=== PATIENT | female | born 1955 | race Caucasian/White ===

== ENCOUNTER → 2017-02-22 | Outpatient (CLI) | payer OTHER ==
[2015-10-02 21:14] VITALS: BP 157/92
[~2017-02-22] MED LIST: ALBU25PO2 MC; AMLO5TAB4 PO; ATOR10TA PO; CA C1TAB63 PO; CALC500T54 PO; CYAN100016 SL; DIPH25CA58 PO; DOCU100T11 PO; ESTR0.5T PO; HYDR12.53 PO; IRON18TA PO; LOVA40TA2 PO; METH-37 PO; MULT1CAP15 PO; OXYC-323 PO; PROAIR HFA8.5 GM IH; SERT100T PO; TRAM-48 PO; [UNRECOGNIZED DRUG - CODE] TP
--- NOTE | 2017-02-22 17:11 | RAD ---
MRI Brain without contrast History: Pain behind the right eye for 5 weeks Technique: Multiplanar, multisequential noncontrast MR imaging was performed of the brain. Contrast: None Comparison: April 19, 2014 Findings: There is some motion degradation.There is no evidence of recent infarct or cytotoxic edema. The ventricles, sulci, and cisterns are within normal limits in size and configuration. There is no significant midline shift, mass effect, or focal abnormal extra-axial fluid collection. There are multiple scattered foci of T2 and FLAIR hyperintense abnormality of the supratentorial white matter in a bilateral distribution overall unchanged in the interval. There is no significant hemosiderin deposition of the brain parenchyma. There is preservation of the major intracranial flow-voids at the skull base. The mastoid air cells are aerated. The cerebellar tonsils are normal in location. There is no significant abnormality of the pineal gland or pituitary gland. There is patchy minimal ethmoid air cell mucosal thickening. There is preserved marrow signal of the clivus. Impression: 1. There is no intracranial mass effect or evidence of recent infarct. Scattered T2 and FLAIR hyperintense abnormality of the supratentorial white matter is similar in extent compared with the 2015 exam, nonspecific findings which may be due to chronic microvascular ischemic disease. Sequela of an inflammatory demyelinating disease is not entirely excluded in a patient this age. Electronically signed by: Bobby Guajardo MD (02/22/2017 5:08 PM) [facility]
== END | disposition home or self-care (01) ==
LOC: MRI 15:12
PROVIDERS: ATTEND Family Medicine
DX: H57.11 Ocular pain, right eye (principal); G37.9 Demyelinating disease of central nervous system, unspecified
CPT/HCPCS: 70551

== ENCOUNTER → 2017-05-10 | Outpatient (CLI) | payer OTHER | END | disposition home or self-care (01) | LOC: KCIC 11:59 | DX: I87.8 Other specified disorders of veins (principal); Z90.49 Acquired absence of other specified parts of digestive tract | CPT/HCPCS: 74018 ==

== ENCOUNTER → 2018-01-03 | Outpatient (CLI) | payer OTHER ==
[2015-10-02 21:14] VITALS: BP 157/92
--- NOTE | 2018-01-03 16:54 | KCIC ---
FINGER(S) LEFT, WRIST 3V LEFT History: Left thumb and wrist pain for several weeks. Repetitive work. Locking. No injury or trauma.. Comparison: None are available Three-view left thumb Mild marginal spurring at the IP joint. No acute fracture or dislocation. IMPRESSION: Mild degenerative change. 3 view left wrist There is some deformity of the distal radius, likely due to a prior fracture. Mild dorsal tilt of the distal radial articular surface. There is also an incompletely united chronic appearing fracture at the base of the ulnar styloid. Note there is an increased scapholunate angle. Soft tissue planes about the wrist appear intact. IMPRESSION: Findings compatible with previous fractures of the distal radius and distal ulna. These appear nonacute, typically in correlation with the history of known trauma. Electronically signed by: Erick Sanchez MD (01/03/2018 4:51 PM) [facility]
== END | disposition home or self-care (01) ==
LOC: KCIC 12:04
PROVIDERS: ATTEND Family Medicine
DX: M19.042 Primary osteoarthritis, left hand (principal); M21.832 Other specified acquired deformities of left forearm; M77.8 Other enthesopathies, not elsewhere classified
CPT/HCPCS: 73110; 73140

== ENCOUNTER → 2018-06-07 | Outpatient (CLI) | payer OTHER ==
[2015-10-02 21:14] VITALS: BP 157/92
[~2018-06-07] MED LIST changes: +ALBU2.5V8 IH; -HYDR12.53 PO; +HYDR12.575 PO; -OXYC-323 PO; +OXYC1TAB15 PO; -PROAIR HFA8.5 GM IH
--- NOTE | 2018-06-08 10:09 | SLEEP ---
DATE OF STUDY: 06/07/2018 ATTENDING PHYSICIAN: Dr. Sabiha Sheffield. The patient is a 62-year-old who weighs 210 pounds with a BMI of 35. The patient's [place] score was 3. The patient had a sleep study done 10 years ago and was positive for sleep apnea. The patient had bariatric surgery and lost 110 pounds. The patient then subsequently gained 50 pounds and has some daytime somnolence, as a result another sleep study was ordered. During the night study, the patient spent 415 minutes in bed and slept for 401 minutes with a sleep efficiency of 97%. Sleep latency was 12 minutes with a REM latency of 208 minutes. Overall, sleep architecture showed normal stage 1 sleep, increased stage 2 sleep, increased slow wave and reduced REM sleep, which was 6% of the total sleep time. During the night study, the patient had no obstructive or central apneas. There were 3 mixed apneas and 33 hypopneas. The patient's apnea-hypopnea index was 5 per hour, supine index 6 per hour and the REM index of 28 per hour. EKG monitoring revealed normal sinus rhythm, average heart rate 69 beats per minute, no sustained arrhythmias observed. Nocturnal oximetry study revealed an average oxygen saturation 96% with lowest of 85%. Only 2.4% of time oxygen saturation remained between 80% and 89%. PLMS were seen at index of 100 per hour and 8 per hour caused EEG arousals. Due to low AHI, the patient did not meet the split night criteria for CPAP initiation. IMPRESSION: 1. Mild sleep apnea-hypopnea syndrome with worsening during REM sleep. Total AHI of 5 per hour with a REM AHI of 28 per hour. 2. Severe PLMS. 3. No clinically significant nocturnal hypoxia. RECOMMENDATIONS: 1. The patient did not meet the criteria for CPAP initiation. 2. The patient has mild sleep apnea. I would recommend treatment with weight loss initially. 3. If patient remains clinically symptomatic despite weight loss, then consider treatment options such as oral appliance or a trial of CPAP. 4. PLMS can be treated with dopaminergic agonist agents if the patient is clinically symptomatic. The patient should also be further evaluated for symptoms of restless legs during the day. 5. Cautioned regarding driving until hypersomnia is resolved with above recommendations. JAMIN HARGROVE MD DR: YURIY/gary JOB#: [id number] / [id number] SABIHA Beach MD MTDD
== END ==
LOC: SLPLAB 19:13
PROVIDERS: ATTEND Family Medicine
DX: G47.33 Obstructive sleep apnea (adult) (pediatric) (principal); G47.61 Periodic limb movement disorder
CPT/HCPCS: 95810

== ENCOUNTER → 2018-08-18 | Outpatient (CLI) | payer OTHER ==
[2015-10-02 21:14] VITALS: BP 157/92
--- NOTE | 2018-08-18 16:56 | KCIC ---
Lumbar spine 5 views. HISTORY: Low back pain, M [age] 5 views were taken of lumbar spine. There is increased stool in the colon. Patient's had a cholecystectomy. A fracture is not identified. Lumbar spine is in normal alignment. Disc spaces are normal in height. Oblique view show facet arthritis in the lower lumbar spine. IMPRESSION: 1. Degenerative facet arthritis. 2. No acute fracture. Electronically signed by: Prieto Lindsey MD (08/18/2018 4:53 PM) [facility]
== END | disposition home or self-care (01) ==
LOC: KCIC 15:57
PROVIDERS: ATTEND Family Medicine
DX: M46.86 Other specified inflammatory spondylopathies, lumbar region (principal); Z90.49 Acquired absence of other specified parts of digestive tract
CPT/HCPCS: 72110

== ENCOUNTER 2019-06-14 12:46 | Emergency (ER) | payer OTHER ==
[~2019-06-14] VITALS: Ht 167.6 cm; Wt 99.0 kg
[2019-06-14] MEDS ORDERED: IV NORMAL SALINE 1000ML BAG 1,000 ML IV ONE (14:15)
--- NOTE | 2019-06-14 14:32 | RAD ---
PORTABLE CHEST 1V Clinical History: Dizziness Technique: AP view of the chest was obtained at 06/14/2019 2:12 PM. Comparison: None. Findings: The cardiomediastinal silhouette is normal. The pulmonary vasculature is normal. The lungs and pleural margins are clear. Impression: No evidence of an acute cardiopulmonary process. Electronically signed by: Jonah Benito III, MD (06/14/2019 2:29 PM) [id number]
[2019-06-14 14:55] LABS: BASO # 0.1 x10^3/uL (0.0-0.2); BASO % 1 % (0-3); EOS # 0.2 x10^3/uL (0.0-0.7); EOS % 3 % (0-3); HEMATOCRIT 34.8 % (36.0-47.0); HEMOGLOBIN 11.5 g/dL (12.0-15.5); LYMPH % 35 % (24-48); MEAN CORPUSCULAR HEMOGLOBIN 28 pg (25-35); MEAN CORPUSCULAR HGB CONC 33 g/dL (31-37); MEAN CORPUSCULAR VOLUME 85 fL (79-100); MONO # 0.3 x10^3/uL (0.0-1.1); MONO % 6 % (0-9); NEUT # 3.2 x10^3/uL (1.8-7.7); NEUT % 55 % (31-73); PLATELET COUNT 295 x10^3/uL (140-400); RED BLOOD COUNT 4.11 x10^6/uL (3.50-5.40); RED CELL DISTRIBUTION WIDTH 14.3 % (11.5-14.5); WHITE BLOOD COUNT 5.9 x10^3/uL (4.0-11.0)
--- NOTE | 2019-06-14 15:05 | RAD ---
CT HEAD WO CONTRAST Clinical indications: Dizziness. COMPARISON: November 23, 2011. Technique: Noncontrast axial cross sectional scanning of the head was performed. PQRS compliance Statement One or more of the following individualized dose reduction techniques were utilized for this study: 1. Automated exposure control 2. Adjustment of the mA and/or kV according to patient size 3. Use of iterative reconstruction technique Findings: No acute intracranial hemorrhage or midline shift or mass-effect or hydrocephalus or extra-axial fluid collection is seen. No focal hypodense area or sulci effacement is seen to indicate an acute infarct or edema radiographically. No skull fracture or pneumocephalus is seen. No opacification of the mastoid sinuses or the middle ear cavities or the paranasal sinuses is seen. The maxillary sinuses are not completely seen in this study. Impression: No acute intracranial abnormality is seen. Electronically signed by: Fidencio Baires MD (06/14/2019 3:02 PM) [facility] [place]
[2019-06-14 16:00] LABS: BILIRUBIN,URINE NEGATIVE (NEG); CLARITY,URINE CLEAR; COLOR,URINE YELLOW; NITRITE,URINE NEGATIVE (NEG); PH,URINE 5.5; PROTEIN,URINE NEGATIVE (NEG-TRACE); UROBILINOGEN,URINE 0.2 mg/dL (0.2 mg/dL)
[2019-06-14 16:06] LABS: BACTERIA,URINE MOD /HPF (0-FEW); BARBITURATES NEG (NEG); BENZODIAZEPINES NEG (NEG); CANNABINOIDS NEG (NEG); COCAINE NEG (NEG); METHADONE NEG (NEG); OPIATES NEG (NEG); PHENCYCLIDINE NEG (NEG); SQUAMOUS EPITHELIAL CELL,UR MANY /LPF
[2019-06-14 16:07] LABS: AMPHETAMINE/METHAMPHETAMINE NEG (NEG)
[2019-06-14 16:24] LABS: CALCIUM 9.4 mg/dL (8.5-10.1); CREATININE 0.7 mg/dL (0.6-1.0); GFR 85.1; POTASSIUM 3.6 mmol/L (3.5-5.1)
[2019-06-14 16:37] LABS: ALBUMIN 3.8 g/dL (3.4-5.0); MAGNESIUM 1.9 mg/dL (1.8-2.4); TOTAL BILIRUBIN 0.2 mg/dL (0.2-1.0); TOTAL PROTEIN 7.6 g/dL (6.4-8.2)
[2019-06-14 16:41] VITALS: BP 168/81
[2019-06-14 16:41] LABS: CREATINE KINASE 65 U/L (26-192)
[2019-06-14] MEDS ORDERED: MECL12.573 PO (16:55)
--- NOTE | 2019-06-14 16:56 | PHYS DOC ---
Past Medical History Past Medical History: Asthma, Hypertension Past Surgical History: Cholecystectomy, Gastric Bypass, Tonsillectomy Additional Past Surgical Histo: breast reduction, lower GI bleed, Smoking Status: Never Smoker Alcohol Use: Occasionally Drug Use: None Adult General Chief Complaint Chief Complaint: NEAR [facility] HPI Patient is a 63 year old female with history of asthma, hypertension, gastric bypass, who presents to the ED today complaining of episode of dizziness that occurred while she was at work. Patient is employed in the hospital as one of the nurses. She reports she was on her mobile computer when she developed dizziness and everything went rai. Patient denies passing out. Denies any headache, chest pain or shortness of breath. She reports she has had similar episodes before with no acute cause for the symptoms. Review of Systems Review of Systems Constitutional: Denies fever or chills [] Eyes: Denies change in visual acuity, redness, or eye pain [] HENT: Denies nasal congestion or sore throat [] Respiratory: Denies cough or shortness of breath [] Cardiovascular: No additional information not addressed in HPI [] GI: Denies abdominal pain, nausea, vomiting, bloody stools or diarrhea [] : Denies dysuria or hematuria [] Musculoskeletal: Denies back pain or joint pain [] Integument: Denies rash or skin lesions [] Neurologic: Reports dizziness. Denies headache, focal weakness or sensory changes [] All other systems were reviewed and found to be within normal limits, except as documented in this note. Current Medications Current Medications Current Medications Medications (Trade) Dose Ordered Sig/Narayan Start Time Stop Time Status Last Admin Dose Admin Sodium Chloride 1,000 ml @ 1,000 mls/hr 1X ONCE 06/14/19 14:15 06/14/19 15:14 DC 06/14/19 15:05 1,000 MLS/HR Allergies Allergies Allergies Coded Allergies Type Severity Reaction Last Updated Verified GABBY Inhibitors Allergy Intermediate tongue Swelling 03/04/14 Yes Cephalexin Monohydrate Allergy Intermediate Hives 03/04/14 Yes Physical Exam Physical Exam Constitutional: Well developed, well nourished, no acute distress, non-toxic appearance. [] HENT: Normocephalic, atraumatic, bilateral external ears normal, oropharynx moist, no oral exudates, nose normal. [] Eyes: PERRLA, EOMI, conjunctiva normal, no discharge. [] Neck: Normal range of motion, no tenderness, supple, no stridor. [] Cardiovascular:Heart rate regular rhythm, no murmur [] Lungs & Thorax: Bilateral breath sounds clear to auscultation [] Abdomen: Bowel sounds normal, soft, no tenderness, no masses, no pulsatile masses. [] Skin: Warm, dry, no erythema, no rash. [] Back: No tenderness, no CVA tenderness. [] Extremities: No tenderness, no cyanosis, no clubbing, ROM intact, no edema. [] Neurologic: Alert and oriented X 3, normal motor function, normal sensory function, no focal deficits noted. [] Psychologic: Affect normal, judgement normal, mood normal. [] Current Patient Data Vital Signs Vital Signs Date Time Temp Pulse Resp B/P (MAP) Pulse Ox O2 Delivery O2 Flow Rate FiO2 06/14/19 13:54 98.4 87 18 181/84 (116) 97 Room Air 98.4 Lab Values Laboratory Tests Test 06/14/19 14:40 06/14/19 15:30 White Blood Count 5.9 x10^3/uL (4.0-11.0) Red Blood Count 4.11 x10^6/uL (3.50-5.40) Hemoglobin 11.5 g/dL (12.0-15.5) L Hematocrit 34.8 % (36.0-47.0) L Mean Corpuscular Volume 85 fL (79-100) Mean Corpuscular Hemoglobin 28 pg (25-35) Mean Corpuscular Hemoglobin Concent 33 g/dL (31-37) Red Cell Distribution Width 14.3 % (11.5-14.5) Platelet Count 295 x10^3/uL (140-400) Neutrophils (%) (Auto) 55 % (31-73) Lymphocytes (%) (Auto) 35 % (24-48) Monocytes (%) (Auto) 6 % (0-9) Eosinophils (%) (Auto) 3 % (0-3) Basophils (%) (Auto) 1 % (0-3) Neutrophils # (Auto) 3.2 x10^3/uL (1.8-7.7) Lymphocytes # (Auto) 2.0 x10^3/uL (1.0-4.8) Monocytes # (Auto) 0.3 x10^3/uL (0.0-1.1) Eosinophils # (Auto) 0.2 x10^3/uL (0.0-0.7) Basophils # (Auto) 0.1 x10^3/uL (0.0-0.2) Urine Collection Type Unknown Urine Color Yellow Urine Clarity Clear Urine pH 5.5 Urine Specific [place]axon 1.020 Urine Protein Negative mg/dL (NEG-TRACE) Urine Glucose (UA) Negative mg/dL (NEG) Urine Ketones (Stick) Negative mg/dL (NEG) Urine Blood Small (NEG) Urine Nitrite Negative (NEG) Urine Bilirubin Negative (NEG) Urine Urobilinogen Dipstick 0.2 mg/dL (0.2 mg/dL) Urine Leukocyte Esterase Negative (NEG) Urine RBC 6-10 /HPF (0-2) Urine WBC 1-4 /HPF (0-4) Urine Squamous Epithelial Cells Many /LPF Urine Bacteria Mod /HPF (0-FEW) Sodium Level 139 mmol/L (136-145) Potassium Level 3.6 mmol/L (3.5-5.1) Chloride Level 103 mmol/L (98-107) Carbon Dioxide Level 28 mmol/L (21-32) Anion Gap 8 (6-14) Blood Urea Nitrogen 17 mg/dL (7-20) Creatinine 0.7 mg/dL (0.6-1.0) Estimated GFR (Cockcroft-Gault) 85.1 BUN/Creatinine Ratio 24 (6-20) H Glucose Level 93 mg/dL (70-99) Calcium Level 9.4 mg/dL (8.5-10.1) Magnesium Level 1.9 mg/dL (1.8-2.4) Total Bilirubin 0.2 mg/dL (0.2-1.0) Aspartate Amino Transferase (AST) 20 U/L (15-37) Alanine Aminotransferase (ALT) 20 U/L (14-59) Alkaline Phosphatase 95 U/L (46-116) Creatine Kinase 65 U/L (26-192) Creatine Kinase MB (Mass) 0.9 ng/mL (0.0-3.6) Creatine Kinase MB Relative Index % (0-4) Troponin I Quantitative < 0.017 ng/mL (0.000-0.055) WA-Uus-P-Type Natriuretic Peptide 142 pg/mL (0-124) H Total Protein 7.6 g/dL (6.4-8.2) Albumin 3.8 g/dL (3.4-5.0) Albumin/Globulin Ratio 1.0 (1.0-1.7) Thyroid Stimulating Hormone (TSH) 3.379 uIU/mL (0.358-3.74) Urine Opiates Screen Neg (NEG) Urine Methadone Screen Neg (NEG) Urine Barbiturates Neg (NEG) Urine Phencyclidine Screen Neg (NEG) Urine Amphetamine/Methamphetamine Neg (NEG) Urine Benzodiazepines Screen Neg (NEG) Urine Cocaine Screen Neg (NEG) Urine Cannabinoids Screen Neg (NEG) Urine Ethyl Alcohol Neg (NEG) Laboratory Tests 06/14/19 14:40 Laboratory Tests 06/14/19 15:30 EKG EKG [] Radiology/Procedures Radiology/Procedures []PROCEDURE: PORTABLE CHEST 1V PORTABLE CHEST 1V Clinical History: Dizziness Technique: AP view of the chest was obtained at 06/14/2019 2:12 PM. Comparison: None. Findings: The cardiomediastinal silhouette is normal. The pulmonary vasculature is normal. The lungs and pleural margins are clear. Impression: No evidence of an acute cardiopulmonary process. Electronically signed by: Keaton Albarado III, MD (06/14/2019 2:29 PM) [id number] DICTATED and SIGNED BY: KEATON ALBARADO III, MD DATE: 06/14/19 1429 Impressions: PROCEDURE: CT HEAD WO CONTRAST CT HEAD WO CONTRAST Clinical indications: Dizziness. COMPARISON: November 23, 2011. Technique: Noncontrast axial cross sectional scanning of the head was performed. PQRS compliance Statement One or more of the following individualized dose reduction techniques were utilized for this study: 1. Automated exposure control 2. Adjustment of the mA and/or kV according to patient size 3. Use of iterative reconstruction technique Findings: No acute intracranial hemorrhage or midline shift or mass-effect or hydrocephalus or extra-axial fluid collection is seen. No focal hypodense area or sulci effacement is seen to indicate an acute infarct or edema radiographically. No skull fracture or pneumocephalus is seen. No opacification of the mastoid sinuses or the middle ear cavities or the paranasal sinuses is seen. The maxillary sinuses are not completely seen in this study. Impression: No acute intracranial abnormality is seen. Electronically signed by: Alexis Baires MD (06/14/2019 3:02 PM) [facility] [place]ATED and SIGNED BY: ALEXIS BAIRES MD DATE: 06/14/19 2311 Course & Med Decision Making Course & Med Decision Making Pertinent Labs and Imaging studies reviewed. (See chart for details) This is a 63-year-old female patient presenting to the ED today complaining of an episode of dizziness while at work. See HPI. CT of the head is negative, chest x-ray is negative, EKG and labs are negative. Patient given IV fluids. Feeling better. Has had similar episodes. Has good follow-up. Was discharged home. Follow-up with PCP in the course of this week or next week. Dragon Disclaimer Dragon Disclaimer This electronic medical record was generated, in whole or in part, using a voice recognition dictation system. Departure Departure Impression: Primary Impression: Dizziness Disposition: 01 HOME, SELF-CARE Condition: STABLE Referrals: SABIHA KO MD (PCP) follow up in 1-2 weeks Patient Instructions: Dizziness, [id number] Additional Instructions: You were evaluated in the emergency room for dizziness. Please push fluids, change positions slowly. Follow-up with your own doctor in the course of this week or next week. Come back to the ED at any point symptoms worsen. Scripts Meclizine Hcl (MECLIZINE HCL) 12.5 Mg Tablet 1 TAB PO TID PRN for DIZZINESS, #20 TAB 3 Refills Prov: BLANCHE TAN APRN 06/14/19 BLANCHE TAN APRN Jun 14, 2019 16:56
== END 2019-06-14 17:00 | disposition home or self-care (01) ==
LOC: ER 12:46
DX: R42 Dizziness and giddiness (principal); J45.909 Unspecified asthma, uncomplicated; I10 Essential (primary) hypertension; Z90.49 Acquired absence of other specified parts of digestive tract; Z90.89 Acquired absence of other organs; Z98.890 Other specified postprocedural states; Z88.1 Allergy status to other antibiotic agents; Z88.8 Allergy status to other drugs, medicaments and biological substances
CPT/HCPCS: 36415; 70450; 71045; 80053; 80307; 81001; 82553; 83735; 83880; 84443; 84484; 85025; 96360; 99285; J7030

== ENCOUNTER → 2019-11-08 | Outpatient (CLI) | payer OTHER ==
[~2019-11-08] MED LIST changes: +MECL12.573 PO
--- NOTE | 2019-11-08 13:59 | RAD ---
Left lower extremity venous duplex study 11/08/2019 Clinical History: Lower extremity pain following recent injury Technique: Using a combination of real time ultrasound imaging and color-flow and pulse Doppler imaging techniques, including spectral analysis, graded compression and augmentation, duplex evaluation of the deep venous system of the left lower extremity was performed. Multiple images were obtained. Findings: There is no sonographic evidence of deep venous thrombosis involving the visualized deep venous structures of the left lower extremity Impression: No evidence of deep venous thrombosis involving the left lower extremity Electronically signed by: Kevin Wills MD (11/08/2019 1:57 PM) [id number]
== END | disposition home or self-care (01) ==
LOC: US 12:43
PROVIDERS: ATTEND Family Medicine
DX: R60.0 Localized edema (principal)
CPT/HCPCS: 93971

== ENCOUNTER → 2020-11-27 | Outpatient (CLI) | payer OTHER ==
[~2020-11-27] MED LIST changes: -MECL12.573 PO; +MECL12.582 PO
== END ==
LOC: LAB 15:34
PROVIDERS: ATTEND Internal Medicine Pulmonary Disease
DX: R05 Cough (principal); R06.02 Shortness of breath; R53.81 Other malaise; Z20.822 Contact with and (suspected) exposure to COVID-19
CPT/HCPCS: U0003; U0005

== ENCOUNTER 2020-12-05 19:11 | Observation (INO) | payer OTHER ==
[~2020-12-05] VITALS: Ht 165.1 cm; Wt 100.5 kg
[2020-12-05 19:34] LABS: BASO # 0.1 x10^3/uL (0.0-0.2); BASO % 1 % (0-3); EOS # 0.2 x10^3/uL (0.0-0.7); EOS % 2 % (0-3); HEMATOCRIT 37.4 % (36.0-47.0); HEMOGLOBIN 12.7 g/dL (12.0-15.5); LYMPH # 3.3 x10^3/uL (1.0-4.8); LYMPH % 39 % (24-48); MEAN CORPUSCULAR HEMOGLOBIN 30 pg (25-35); MEAN CORPUSCULAR HGB CONC 34 g/dL (31-37); MEAN CORPUSCULAR VOLUME 88 fL (79-100); MONO # 0.6 x10^3/uL (0.0-1.1); MONO % 7 % (0-9); NEUT # 4.2 x10^3/uL (1.8-7.7); NEUT % 50 % (31-73); PLATELET COUNT 301 x10^3/uL (140-400); RED BLOOD COUNT 4.23 x10^6/uL (3.50-5.40); RED CELL DISTRIBUTION WIDTH 14.6 % (11.5-14.5); WHITE BLOOD COUNT 8.4 x10^3/uL (4.0-11.0)
--- NOTE | 2020-12-05 19:49 | EKG ---
[facility] [address] [place] [address] Test Date: 2020-12-05 Test Time: 19:21:04 Pat Name: LUZ MARIA GARRETT Department: Room: Gender: F Corporate Learning Consultant: : [id number] Requested By: HOLGER BREWER Order Number: [id number] Reading MD: Heron Lucero MD Measurements Intervals Shafter Rate: 89 P: 27 MD: 166 QRS: -19 QRSD: 106 T: 75 QT: 390 QTc: 476 Interpretive Statements SR NO ACUTE FINDINGS MISSING LEADS Electronically Signed On 12-10-2020 10:45:43 CDT by Heron Lucero MD
[2020-12-05 19:51] LABS: CALCIUM 9.9 mg/dL (8.5-10.1); CREATININE 0.9 mg/dL (0.6-1.0); GFR 63.4; POTASSIUM 3.4 mmol/L (3.5-5.1)
--- NOTE | 2020-12-05 19:54 | PHYS DOC ---
Past Medical History Past Medical History: Asthma, Hypertension Past Surgical History: Cholecystectomy, Gastric Bypass, Tonsillectomy Additional Past Surgical Histo: breast reduction, lower GI bleed, Smoking Status: Never Smoker Alcohol Use: None Drug Use: None General Adult EDM: Chief Complaint: CHEST PAIN HPI: HPI: Not exertional, no associated diaphoresis, said that she had a coronary angiogram about 9 years ago that was normal, no known history of thromboembolism she says, no loss of taste or smell, no coughing or fever and she says she is fully vaccinated to coronavirus 19 64-year-old female has a history of hypertension and diabetes, no known history of coronary disease but presents to the ER complaining of roughly 1 hour of pain initially in her jaw and then she said that this radiated down to her chest and neck, says pain is about a 1 out of 10, Review of Systems: Review of Systems: Constitutional: Denies fever or chills. [] Eyes: Denies change in visual acuity. [] HENT: Denies nasal congestion or sore throat. [] Respiratory: Denies cough or shortness of breath. [] Cardiovascular: +chest pain or edema. [] GI: Denies abdominal pain, nausea, vomiting, bloody stools or diarrhea. [] : Denies dysuria. [] Musculoskeletal: Denies back pain or joint pain. [] Integument: Denies rash. [] Neurologic: Denies headache, focal weakness or sensory changes. [] Endocrine: Denies polyuria or polydipsia. [] Lymphatic: Denies swollen glands. [] Psychiatric: Denies depression or anxiety. [] Heart Score: C/O Chest Pain: Yes HEART Score for Chest Pain: HEART Score for Chest Pain Response (Comments) Value History Moderately Suspicious 1 ECG Nonspecific Repolarizatio 1 Age >45 - < 65 1 Risk Factors 1 or 2 Risk Factors 1 Troponin < Normal Limit 0 Total 4 Risk Factors: Risk Factors: DM, Current or recent (<one month) smoker, HTN, HLP, family history of CAD, obesity. Risk Scores: Score 0 - 3: 2.5% MACE over next 6 weeks - Discharge Home Score 4 - 6: 20.3% MACE over next 6 weeks - Admit for Clinical Observation Score 7 - 10: 72.7% MACE over next 6 weeks - Early Invasive Strategies Allergies: Allergies: Allergies Coded Allergies Type Severity Reaction Last Updated Verified GABBY Inhibitors Allergy Intermediate tongue Swelling 03/04/14 Yes Cephalexin Monohydrate Allergy Intermediate Hives 03/04/14 Yes Physical Exam: PE: Gen-well appearing, no acute distress Head: Normocephalic/Atraumatic ENT: atraumatic, PERRLA, EOMI, oropharynx clear Neck: supple, full ROM/strength, no JVD, no nuchal rigidity Lungs: no distress, speaks in full sentences, Clear to auscultation bilaterally CV: reg rate, rhythm, no murmus/rubs/gallops, peripheral pulses equal in all extremities Abdomen: soft/nontender, no guarding/rebound tenderness, no rigidity, non distended, normoactive bowel sounds Musculoskeletal: full ROM/strength in all extremities, atraumatic, no swelling Back: full range of motion/strength Skin: intact, no rashes Lymph: no gross MONIQUE Neuro: alert and oriented x 4, CN 2-12 grossly intact, Motor strength is 5/5 in all extremities, no focal sensory deficits, no focal ataxia, ambulatory with steady gait Psych: normal mood/affect Current Patient Data: Labs: Laboratory Tests Test 12/05/20 19:28 White Blood Count 8.4 x10^3/uL (4.0-11.0) Red Blood Count 4.23 x10^6/uL (3.50-5.40) Hemoglobin 12.7 g/dL (12.0-15.5) Hematocrit 37.4 % (36.0-47.0) Mean Corpuscular Volume 88 fL (79-100) Mean Corpuscular Hemoglobin 30 pg (25-35) Mean Corpuscular Hemoglobin Concent 34 g/dL (31-37) Red Cell Distribution Width 14.6 % (11.5-14.5) H Platelet Count 301 x10^3/uL (140-400) Neutrophils (%) (Auto) 50 % (31-73) Lymphocytes (%) (Auto) 39 % (24-48) Monocytes (%) (Auto) 7 % (0-9) Eosinophils (%) (Auto) 2 % (0-3) Basophils (%) (Auto) 1 % (0-3) Neutrophils # (Auto) 4.2 x10^3/uL (1.8-7.7) Lymphocytes # (Auto) 3.3 x10^3/uL (1.0-4.8) Monocytes # (Auto) 0.6 x10^3/uL (0.0-1.1) Eosinophils # (Auto) 0.2 x10^3/uL (0.0-0.7) Basophils # (Auto) 0.1 x10^3/uL (0.0-0.2) Laboratory Tests 12/05/20 19:28 Vital Signs: Vital Signs Date Time Temp Pulse Resp B/P (MAP) Pulse Ox O2 Delivery O2 Flow Rate FiO2 12/05/20 19:21 97.9 87 16 170/86 (116) 99 Room Air 97.9 EKG: EKG: [] Twelve-lead EKG was performed at 1920 1 PM: Normal sinus rhythm, rate is 89, nonspecific ST/T wave findings, flattened and inverted T waves in the inferior l heaven Radiology/Procedures: Radiology/Procedures: [] Course & Med Decision Making: Course & Med Decision Making Pertinent Labs and Imaging studies reviewed. (See chart for details) [] Patient presented to the emergency room with chief complaint of chest pain, concerning for possible ACS, differential includes but not limited to pneumonia, costochondritis, GERD, cholelithiasis, pancreatitis, unlikely PE, pneumothorax, dissection or unlikely etiologies, heart score is a 4 which is moderate risk for major adverse cardiac events, Wells low risk for PE, plan is for cardiac biomarkers, chest x-ray, D-dimer level to rule out PE in this otherwise low risk patient, will give her aspirin and given her symptomatology and lack of any re cent cardiac imaging in almost 10 years will likely admit the patient to rule out acute coronary syndrome as I do believe she she likely needs a stress test or stress echo Dragon Disclaimer: Dragon Disclaimer: This electronic medical record was generated, in whole or in part, using a voice recognition dictation system. Departure Departure Impression: Primary Impression: Chest pain Qualified Codes: R07.9 - Chest pain, unspecified Disposition: ADMITTED INPATIENT Referrals: SABIHA KO MD (PCP) HOLGER BREWER MD Dec 05, 2020 19:54
[2020-12-05 20:04] LABS: ALBUMIN 3.7 g/dL (3.4-5.0); ALBUMIN/GLOBULIN RATIO 0.9 (1.0-1.7); TOTAL BILIRUBIN 0.2 mg/dL (0.2-1.0); TOTAL PROTEIN 7.8 g/dL (6.4-8.2)
--- NOTE | 2020-12-05 20:17 | RAD ---
EXAM: CHEST 1 VIEW History: Chest pain COMPARISON: 06/14/2019 TECHNIQUE: Single portable radiograph of the chest FINDINGS: The cardiac silhouette is unremarkable. Mild bibasilar lung atelectasis or infiltrates. Th e costophrenic sulci are clear and well demarcated. IMPRESSION: Mild bibasilar lung atelectasis or infiltrates. Electronically signed by: Klaus Duffy MD (12/05/2020 8:15 PM) [id number]
[2020-12-05] MEDS ORDERED: ONDANSETRON PF 4 MG/2 ML VIAL. IVP PRN (21:00)
[2020-12-05] MEDS ORDERED: ASPIRIN 325 MG TABLET PO ONE (21:30)
[2020-12-05 22:00] VITALS: BP 167/82
[2020-12-05] MEDS ORDERED: ROPI2TAB10 PO (22:13)
[2020-12-05] MEDS ORDERED: HYDR-2145 PO (22:17)
[2020-12-05] MEDS ORDERED: ACET500T68 PO (23:58)
[2020-12-05] MEDS ORDERED: IBUP-1027 PO (23:59)
[2020-12-06 03:00] VITALS: BP 139/77
[2020-12-06 06:36] LABS: BASO % 1 % (0-3); EOS # 0.2 x10^3/uL (0.0-0.7); EOS % 3 % (0-3); HEMOGLOBIN 11.8 g/dL (12.0-15.5); LYMPH % 44 % (24-48); MEAN CORPUSCULAR HEMOGLOBIN 30 pg (25-35); MEAN CORPUSCULAR HGB CONC 34 g/dL (31-37); MEAN CORPUSCULAR VOLUME 89 fL (79-100); MONO # 0.5 x10^3/uL (0.0-1.1); MONO % 7 % (0-9); NEUT % 46 % (31-73); PLATELET COUNT 263 x10^3/uL (140-400); RED BLOOD COUNT 3.93 x10^6/uL (3.50-5.40); RED CELL DISTRIBUTION WIDTH 14.2 % (11.5-14.5); WHITE BLOOD COUNT 6.7 x10^3/uL (4.0-11.0)
[2020-12-06 06:53] LABS: CALCIUM 9.4 mg/dL (8.5-10.1); CREATININE 0.7 mg/dL (0.6-1.0); GFR 84.8; POTASSIUM 3.4 mmol/L (3.5-5.1)
[2020-12-06 07:00] VITALS: BP 136/76
[2020-12-06] MEDS ORDERED: ALBUTEROL SULFATE 2.5 MG/3 ML NEBU. INH PRN (10:00)
[2020-12-06] MEDS ORDERED: METHOCARBAMOL 500 MG TABLET PO PRN (10:00)
[2020-12-06] MEDS ORDERED: ASPIRIN ENTERIC COATED 325 MG TABLET.DR. PO SCH (10:00)
[2020-12-06] MEDS ORDERED: ESTRADIOL 1 MG TABLET. PO SCH (10:30)
[2020-12-06] MEDS ORDERED: hydroCHLOROthiazide 25 MG TABLET PO SCH (10:30)
[2020-12-06 11:00] VITALS: BP 123/76
[2020-12-06] MEDS ORDERED: ACETAMINOPHEN 500 MG TABLET PO SCH (12:00)
[2020-12-06 15:00] VITALS: BP 151/83
--- NOTE | 2020-12-06 15:51 | PDOC ---
GENERAL General: History and physical [id number] VITAL SIGNS Vital Signs/I&O: Vital Signs Date Time Temp Pulse Resp B/P (MAP) Pulse Ox O2 Delivery O2 Flow Rate FiO2 12/06/20 11:00 97.9 79 18 123/76 (92) 98 Room Air 97.9 I & O 12/05/20 12/05/20 12/06/20 15:00 23:00 07:00 Intake Total 300 ml Output Total 650 ml Balance -350 ml ALLERGIES Allergies: Allergies Coded Allergies Type Severity Reaction Last Updated Verified GABBY Inhibitors Allergy Intermediate tongue Swelling 03/04/14 Yes Cephalexin Monohydrate Allergy Intermediate Hives 03/04/14 Yes MEDS Medications: Current Medications Medications (Trade) Dose Ordered Sig/Anrayan Route PRN Reason Start Time Stop Time Status Last Admin Dose Admin Aspirin (Danya Aspirin) 325 mg 1X ONCE PO 12/05/20 21:30 12/05/20 21:31 DC 12/05/20 21:21 Amlodipine Besylate (Norvasc) 5 mg DAILY PO 12/06/20 10:30 12/06/20 10:26 Hydrochlorothiazide (Hydrodiuril) 25 mg DAILY PO 12/06/20 10:30 12/06/20 10:27 Estradiol (Estrace) 1 mg DAILY PO 12/06/20 10:30 12/06/20 10:27 Aspirin (Ecotrin) 325 mg DAILY PO 12/06/20 10:00 12/06/20 10:27 LAB Lab: Laboratory Tests Test 12/05/20 19:28 12/05/20 19:45 12/06/20 00:20 12/06/20 06:05 White Blood Count 8.4 x10^3/uL (4.0-11.0) 6.7 x10^3/uL (4.0-11.0) Red Blood Count 4.23 x10^6/uL (3.50-5.40) 3.93 x10^6/uL (3.50-5.40) Hemoglobin 12.7 g/dL (12.0-15.5) 11.8 g/dL (12.0-15.5) L Hematocrit 37.4 % (36.0-47.0) 35.0 % (36.0-47.0) L Mean Corpuscular Volume 88 fL (79-100) 89 fL (79-100) Mean Corpuscular Hemoglobin 30 pg (25-35) 30 pg (25-35) Mean Corpuscular Hemoglobin Concent 34 g/dL (31-37) 34 g/dL (31-37) Red Cell Distribution Width 14.6 % (11.5-14.5) H 14.2 % (11.5-14.5) Platelet Count 301 x10^3/uL (140-400) 263 x10^3/uL (140-400) Neutrophils (%) (Auto) 50 % (31-73) 46 % (31-73) Lymphocytes (%) (Auto) 39 % (24-48) 44 % (24-48) Monocytes (%) (Auto) 7 % (0-9) 7 % (0-9) Eosinophils (%) (Auto) 2 % (0-3) 3 % (0-3) Basophils (%) (Auto) 1 % (0-3) 1 % (0-3) Neutrophils # (Auto) 4.2 x10^3/uL (1.8-7.7) 3.0 x10^3/uL (1.8-7.7) Lymphocytes # (Auto) 3.3 x10^3/uL (1.0-4.8) 3.0 x10^3/uL (1.0-4.8) Monocytes # (Auto) 0.6 x10^3/uL (0.0-1.1) 0.5 x10^3/uL (0.0-1.1) Eosinophils # (Auto) 0.2 x10^3/uL (0.0-0.7) 0.2 x10^3/uL (0.0-0.7) Basophils # (Auto) 0.1 x10^3/uL (0.0-0.2) 0.0 x10^3/uL (0.0-0.2) Sodium Level 140 mmol/L (136-145) 142 mmol/L (136-145) Potassium Level 3.4 mmol/L (3.5-5.1) L 3.4 mmol/L (3.5-5.1) L Chloride Level 102 mmol/L (98-107) 106 mmol/L (98-107) Carbon Dioxide Level 26 mmol/L (21-32) 26 mmol/L (21-32) Anion Gap 12 (6-14) 10 (6-14) Blood Urea Nitrogen 22 mg/dL (7-20) H 19 mg/dL (7-20) Creatinine 0.9 mg/dL (0.6-1.0) 0.7 mg/dL (0.6-1.0) Estimated GFR (Cockcroft-Gault) 63.4 84.8 BUN/Creatinine Ratio 24 (6-20) H Glucose Level 91 mg/dL (70-99) 100 mg/dL (70-99) H Calcium Level 9.9 mg/dL (8.5-10.1) 9.4 mg/dL (8.5-10.1) Total Bilirubin 0.2 mg/dL (0.2-1.0) Aspartate Amino Transferase (AST) 22 U/L (15-37) Alanine Aminotransferase (ALT) 27 U/L (14-59) Alkaline Phosphatase 91 U/L (46-116) Troponin I Quantitative < 0.017 ng/mL (0.000-0.055) < 0.017 ng/mL (0.000-0.055) < 0.017 ng/mL (0.000-0.055) WK-Jql-H-Type Natriuretic Peptide 113 pg/mL (0-124) Total Protein 7.8 g/dL (6.4-8.2) Albumin 3.7 g/dL (3.4-5.0) Albumin/Globulin Ratio 0.9 (1.0-1.7) L Lipase 84 U/L (73-393) D-Dimer (Yenifer) 0.31 ug/mlFEU (0.00-0.50) Laboratory Tests 12/05/20 19:28 12/06/20 06:05 Laboratory Tests 12/05/20 19:28 12/06/20 06:05 Justifications for Admission Other Justification KRAIG LEVI MD Dec 06, 2020 15:51
[2020-12-06] MEDS ORDERED: METOPROLOL SUCC 24HR ER 25 MG TAB.ER.24H. PO SCH (16:00)
[2020-12-06] MEDS ORDERED: ASPI325T11 PO (16:08)
[2020-12-06] MEDS ORDERED: METO-239 PO (16:08)
--- NOTE | 2020-12-06 16:08 | DISCH ---
DISCHARGE INSTRUCTIONS Condition on Discharge Condition on Discharge: Stable Activity After Discharge Activity Instructions for Disc: Activity as tolerated Bathing Instructions: No Tub Bath until see Lifting Instructions after Dis: No heavy lifting Driving Instructions after Dis: Do not drive today Weight Bearing Status after Di: No restrictions Diet after Discharge Diet after Discharge: Cardiac, Diabetic No Calorie Level Wound Incision Care Wound/Incision Care: May get incision wet Contacting the DRWilfred after DC Call your doctor for: If your condition worsens Treatment/Equipment after DC Adaptive Equipment Issued: None KRAIG LEVI MD Dec 06, 2020 16:08
--- NOTE | 2020-12-06 16:12 | PDOC3 ---
Discharge Summary Date of Admission: Dec 06, 2020 Date of Discharge: Dec 06, 2020 Follow-Up: 1-2 days Problems: (1) Angina at rest FINAL DIAGNOSIS Problems Medical Problems: (1) Chest pain Status: Acute Brief Hospital Course Patient was admitted earlier today with substernal chest pressure radiating into her right jaw concerning for unstable coronary syndrome. She has had an unremarkable stay and is hoping for discharge for close outpatient follow-up. Nurse Gary on the 6 floor has spoken with Dr. Lucero who has agreed to discharge her and see her in the office on Tuesday for stress testing. Patient has strict instructions to return to the hospital should her symptoms escalate. We have started metoprolol extended release 25 mg daily as well as Ecotrin 325 mg daily. She will continue her usual medications otherwise. Physical exam is documented on the history and physical dictated earlier today. Discharge Medications Current Medications Aspirin (Danya Aspirin) 325 mg 1X ONCE PO Last administered on 12/05/20at 21:2 1; Start 12/05/20 at 21:30; Stop 12/05/20 at 21:31; Status DC Ondansetron HCl (Zofran) 4 mg PRN Q8HRS PRN IVP NAUSEA/VOMITING; Start 12/05/20 at 21:00; Stop 12/06/20 at 20:59 Acetaminophen (Tylenol) 1,000 mg Q6HRS PO ; Start 12/06/20 at 12:00 Albuterol Sulfate (Ventolin Neb Soln) 2.5 mg PRN Q4HRS PRN INH wheezing; Start 12/06/20 at 10:00 Amlodipine Besylate (Norvasc) 5 mg DAILY PO Last administered on 12/06/20at 10:26; Start 12/06/20 at 10:30 Diphenhydramine HCl (Benadryl) 50 mg HS PO ; Start 12/06/20 at 21:00 Hydrochlorothiazide (Hydrodiuril) 25 mg DAILY PO Last administered on 12/06/20at 10:27; Start 12/06/20 at 10:30 Methocarbamol (Robaxin) 500 mg PRN Q12HRS PRN PO MUSCLE SPASMS; Start 12/06/20 at 10:00 Docusate Sodium (Colace) 100 mg PRN BID PRN PO .; Start 12/06/20 at 21:00 Estradiol (Estrace) 1 mg DAILY PO Last administered on 12/06/20at 10:27; Start 12/06/20 at 10:30 Ropinirole HCl (Requip) 2 mg HS PO ; Start 12/06/20 at 21:00 Aspirin (Ecotrin) 325 mg DAILY PO Last administered on 12/06/20at 10:27; Start 12/06/20 at 10:00 Metoprolol Succinate (Toprol Xl) 25 mg DAILY PO ; Start 12/06/20 at 16:00 Active Scripts Active Reported Ibuprofen 400 Mg Tablet 400 Mg PO PRN Q6HRS PRN Acetaminophen 500 Mg Tablet 1,000 Mg PO Q6HRS Hydrochlorothiazide Tablet (Hydrochlorothiazide) 25 Mg Tablet 25 Mg PO DAILY Ropinirole Hcl 2 Mg Tablet 2 Mg PO HS Stool Softener (Docusate Sodium) 100 Mg Tablet 100 Mg PO BID PRN Vitamin B-12 (Cyanocobalamin (Vitamin B-12)) 1,000 Mcg Tab.subl 1,000 Mcg SL DAILY Robaxin (Methocarbamol) 500 Mg Tablet 500 Mg PO PRN Q12HRS PRN Proair Hfa Inhaler (Albuterol Sulfate) 8.5 Gm Hfa.aer.ad 2 Puff IH PRN Q4-6HRS Multivitamins (Multivitamin) 1 Each Capsule 1 Each PO DAILY Norvasc (Amlodipine Besylate) 5 Mg Tablet 5 Mg PO DAILY Benadryl (Diphenhydramine Hcl) 25 Mg Capsule 50 Mg PO HS Estradiol 0.5 Mg Tablet 1 Mg PO DAILY Vital Signs Vital Signs Date Time Temp Pulse Resp B/P (MAP) Pulse Ox O2 Delivery O2 Flow Rate FiO2 12/06/20 15:00 97.9 74 18 151/83 (105) 98 Room Air 97.9 Labs Laboratory Tests Test 12/05/20 19:28 12/05/20 19:45 12/06/20 00:20 12/06/20 06:05 White Blood Count 8.4 x10^3/uL (4.0-11.0) 6.7 x10^3/uL (4.0-11.0) Red Blood Count 4.23 x10^6/uL (3.50-5.40) 3.93 x10^6/uL (3.50-5.40) Hemoglobin 12.7 g/dL (12.0-15.5) 11.8 g/dL (12.0-15.5) Hematocrit 37.4 % (36.0-47.0) 35.0 % (36.0-47.0) Mean Corpuscular Volume 88 fL (79-100) 89 fL (79-100) Mean Corpuscular Hemoglobin 30 pg (25-35) 30 pg (25-35) Mean Corpuscular Hemoglobin Concent 34 g/dL (31-37) 34 g/dL (31-37) Red Cell Distribution Width 14.6 % (11.5-14.5) 14.2 % (11.5-14.5) Platelet Count 301 x10^3/uL (140-400) 263 x10^3/uL (140-400) Neutrophils (%) (Auto) 50 % (31-73) 46 % (31-73) Lymphocytes (%) (Auto) 39 % (24-48) 44 % (24-48) Monocytes (%) (Auto) 7 % (0-9) 7 % (0-9) Eosinophils (%) (Auto) 2 % (0-3) 3 % (0-3) Basophils (%) (Auto) 1 % (0-3) 1 % (0-3) Neutrophils # (Auto) 4.2 x10^3/uL (1.8-7.7) 3.0 x10^3/uL (1.8-7.7) Lymphocytes # (Auto) 3.3 x10^3/uL (1.0-4.8) 3.0 x10^3/uL (1.0-4.8) Monocytes # (Auto) 0.6 x10^3/uL (0.0-1.1) 0.5 x10^3/uL (0.0-1.1) Eosinophils # (Auto) 0.2 x10^3/uL (0.0-0.7) 0.2 x10^3/uL (0.0-0.7) Basophils # (Auto) 0.1 x10^3/uL (0.0-0.2) 0.0 x10^3/uL (0.0-0.2) Sodium Level 140 mmol/L (136-145) 142 mmol/L (136-145) Potassium Level 3.4 mmol/L (3.5-5.1) 3.4 mmol/L (3.5-5.1) Chloride Level 102 mmol/L (98-107) 106 mmol/L (98-107) Carbon Dioxide Level 26 mmol/L (21-32) 26 mmol/L (21-32) Anion Gap 12 (6-14) 10 (6-14) Blood Urea Nitrogen 22 mg/dL (7-20) 19 mg/dL (7-20) Creatinine 0.9 mg/dL (0.6-1.0) 0.7 mg/dL (0.6-1.0) Estimated GFR (Cockcroft-Gault) 63.4 84.8 BUN/Creatinine Ratio 24 (6-20) Glucose Level 91 mg/dL (70-99) 100 mg/dL (70-99) Calcium Level 9.9 mg/dL (8.5-10.1) 9.4 mg/dL (8.5-10.1) Total Bilirubin 0.2 mg/dL (0.2-1.0) Aspartate Amino Transf (AST/SGOT) 22 U/L (15-37) Alanine Aminotransferase (ALT/SGPT) 27 U/L (14-59) Alkaline Phosphatase 91 U/L (46-116) Troponin I Quantitative < 0.017 ng/mL (0.000-0.055) < 0.017 ng/mL (0.000-0.055) < 0.017 ng/mL (0.000-0.055) NL-Ooi-I-Type Natriuretic Peptide 113 pg/mL (0-124) Total Protein 7.8 g/dL (6.4-8.2) Albumin 3.7 g/dL (3.4-5.0) Albumin/Globulin Ratio 0.9 (1.0-1.7) Lipase 84 U/L (73-393) D-Dimer (Yenifer) 0.31 ug/mlFEU (0.00-0.50) Laboratory Tests Test 12/05/20 19:28 12/05/20 19:45 12/06/20 00:20 12/06/20 06:05 White Blood Count 8.4 x10^3/uL (4.0-11.0) 6.7 x10^3/uL (4.0-11.0) Red Blood Count 4.23 x10^6/uL (3.50-5.40) 3.93 x10^6/uL (3.50-5.40) Hemoglobin 12.7 g/dL (12.0-15.5) 11.8 g/dL (12.0-15.5) Hematocrit 37.4 % (36.0-47.0) 35.0 % (36.0-47.0) Mean Corpuscular Volume 88 fL (79-100) 89 fL (79-100) Mean Corpuscular Hemoglobin 30 pg (25-35) 30 pg (25-35) Mean Corpuscular Hemoglobin Concent 34 g/dL (31-37) 34 g/dL (31-37) Red Cell Distribution Width 14.6 % (11.5-14.5) 14.2 % (11.5-14.5) Platelet Count 301 x10^3/uL (140-400) 263 x10^3/uL (140-400) Neutrophils (%) (Auto) 50 % (31-73) 46 % (31-73) Lymphocytes (%) (Auto) 39 % (24-48) 44 % (24-48) Monocytes (%) (Auto) 7 % (0-9) 7 % (0-9) Eosinophils (%) (Auto) 2 % (0-3) 3 % (0-3) Basophils (%) (Auto) 1 % (0-3) 1 % (0-3) Neutrophils # (Auto) 4.2 x10^3/uL (1.8-7.7) 3.0 x10^3/uL (1.8-7.7) Lymphocytes # (Auto) 3.3 x10^3/uL (1.0-4.8) 3.0 x10^3/uL (1.0-4.8) Monocytes # (Auto) 0.6 x10^3/uL (0.0-1.1) 0.5 x10^3/uL (0.0-1.1) Eosinophils # (Auto) 0.2 x10^3/uL (0.0-0.7) 0.2 x10^3/uL (0.0-0.7) Basophils # (Auto) 0.1 x10^3/uL (0.0-0.2) 0.0 x10^3/uL (0.0-0.2) Sodium Level 140 mmol/L (136-145) 142 mmol/L (136-145) Potassium Level 3.4 mmol/L (3.5-5.1) 3.4 mmol/L (3.5-5.1) Chloride Level 102 mmol/L (98-107) 106 mmol/L (98-107) Carbon Dioxide Level 26 mmol/L (21-32) 26 mmol/L (21-32) Anion Gap 12 (6-14) 10 (6-14) Blood Urea Nitrogen 22 mg/dL (7-20) 19 mg/dL (7-20) Creatinine 0.9 mg/dL (0.6-1.0) 0.7 mg/dL (0.6-1.0) Estimated GFR (Cockcroft-Gault) 63.4 84.8 BUN/Creatinine Ratio 24 (6-20) Glucose Level 91 mg/dL (70-99) 100 mg/dL (70-99) Calcium Level 9.9 mg/dL (8.5-10.1) 9.4 mg/dL (8.5-10.1) Total Bilirubin 0.2 mg/dL (0.2-1.0) Aspartate Amino Transf (AST/SGOT) 22 U/L (15-37) Alanine Aminotransferase (ALT/SGPT) 27 U/L (14-59) Alkaline Phosphatase 91 U/L (46-116) Troponin I Quantitative < 0.017 ng/mL (0.000-0.055) < 0.017 ng/mL (0.000-0.055) < 0.017 ng/mL (0.000-0.055) TW-Wvg-F-Type Natriuretic Peptide 113 pg/mL (0-124) Total Protein 7.8 g/dL (6.4-8.2) Albumin 3.7 g/dL (3.4-5.0) Albumin/Globulin Ratio 0.9 (1.0-1.7) Lipase 84 U/L (73-393) D-Dimer (Yenifer) 0.31 ug/mlFEU (0.00-0.50) Allergies Allergies Coded Allergies Type Severity Reaction Last Updated Verified GABBY Inhibitors Allergy Intermediate tongue Swelling 03/04/14 Yes Cephalexin Monohydrate Allergy Intermediate Hives 03/04/14 Yes Disposition/Orders: D/C to Home Justicifation of Admission Dx: Justifications for Admission: Justification of Admission Dx: Yes KRAIG LEVI MD Dec 06, 2020 16:12
[2020-12-06 16:13] VITALS: BP 151/83
--- NOTE | 2020-12-06 16:22 | HP ---
ADMIT DATE: 12/05/2020 HISTORY OF PRESENT ILLNESS: This patient is a 64-year-old woman who is a continuity outpatient of Dr. Sabiha Ko who uses the [facility] hospitalist here at [facility]. I am rounding for them this weekend. 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 She herself is fully vaccinated. She has had now 3 episodes of moderate substernal chest pressure that radiates up into her right jaw over the last 24 hours. She presented to the Emergency Department late yesterday evening and was admitted for evaluation of acute coronary syndrome. I am seeing her this afternoon, now 18 hours after admission and she tells me that she really wishes to go home and complete her workup as an outpatient. She is happy that her troponins have tested negative overnight and she is up and moving about without issue. Her last episode of the jaw pain was several hours ago. She tells me that the pain is random and not necessarily exacerbated by activity. She has a history of gastritis and this does not sound to be gastritis from her experience. She also reports that she has had intermittent palpitations, though none since she has been here. There have been no overnight events on telemetry. The patient denies any cough, congestion, shortness of air, abdominal pain, no nausea or vomiting or change in bowel habits noted. All other systems reviewed and negative. PAST MEDICAL HISTORY: 1. The patient has a history of a gastric bypass. I did not speak to her about the details of that, but she reportedly did well following that. 2. History of cholecystectomy. 3. No known history of coronary artery disease, in fact had a cardiac catheterization 9 years ago that was normal. 4. Hypertension. 5. Restless legs syndrome. MEDICATIONS: Please see the medication reconciliation form. 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 She does not take any tobacco, alcohol or illicit drugs. FAMILY HISTORY: Reviewed in full and noncontributory to the present illness. PHYSICAL EXAMINATION: VITAL SIGNS: Reviewed since admission and are notable for examination that the patient has been afebrile. Blood pressure has been in the 120s to 160s over 80 on admission. Heart rate is in the 60s-70s and regular. She is breathing comfortably and saturating normally on room air. GENERAL: The patient is a pleasant 64-year-old woman, alert and oriented x 3, no acute distress. HEENT: Unremarkable. NECK: Soft and supple. No adenopathy or thyromegaly noted. CHEST: Clear to auscultation. HEART: S1, S2 normal. Regular rate and rhythm. No murmurs or gallops noted. ABDOMEN: Obese, soft, nontender, nondistended. No masses or organomegaly noted. EXTREMITIES: Unremarkable for acute abnormality. LABORATORY DATA AND OTHER STUDIES ON ADMISSION: White count is 6.7, hemoglobin is 12.7, platelet count is 301. Chemistry panel is notable for an admission potassium of 3.4, creatinine is 0.7. Electrolytes otherwise unremarkable. Troponins negative x 3. BNP is 113. Chest x-ray is unremarkable for acute abnormality. There is question of bibasilar lung atelectasis. This is a portable chest x-ray. I am unable to pull up the EKG, but reportedly notable for nonspecific ST-T wave findings including flattening and inverted T waves in the inferior leads. Unclear whether that was compared to prior. ASSESSMENT AND PLAN: A 64-year-old woman with several episodes of angina over the last 24 hours, admitted for further evaluation. She has not been taking aspirin at home and that was started here. Her blood pressure and heart rate will be able to tolerate the addition of beta theresa and I will go ahead and do that at this point. Cardiology has been consulted and we will need them to clear her for outpatient workup prior to discharge. The patient is agreeable to staying if need be, but would much rather discharge. We will hold her on an observation status, depending on the cardiac consultation. She is up and moving about the room and does not need anything else for DVT prophylaxis. The patient is a full code. GABBY/COLEEN DR: Gregory TID: [id number] CC: SABIHA KO MD [facility]
--- NOTE | 2020-12-06 17:00 | NUR ---
DISCHARGED PATIENT TO HOME. DISCHARGE INSTRUCTIONS GIVEN. PIV AND HEART MONITOR REMOVED.ESCORTED PATIENT OFF UNIT PER PATIENT AMBULATION INTO A PRIVATE VEHICLE.
[2020-12-06] MEDS ORDERED: DOCUSATE SODIUM 100 MG CAPSULE. PO PRN (21:00)
[2020-12-06] MEDS ORDERED: rOPINIRole 1 MG TABLET. PO SCH (21:00)
[2020-12-06] MEDS ORDERED: diphenhydrAMINE HCL 25 MG CAPSULE PO SCH (21:00)
== END 2020-12-06 17:00 | disposition home or self-care (01) ==
LOC: ER 19:11 → 6 SOUTH 20:21
PROVIDERS: ADMIT Student in an Organized Health Care Education/Training Program; ATTEND Student in an Organized Health Care Education/Training Program
DX: I20.9 Angina pectoris, unspecified (principal); E11.9 Type 2 diabetes mellitus without complications; I10 Essential (primary) hypertension; J45.909 Unspecified asthma, uncomplicated; R00.2 Palpitations; G25.81 Restless legs syndrome; K29.70 Gastritis, unspecified, without bleeding; Z79.82 Long term (current) use of aspirin; Z90.49 Acquired absence of other specified parts of digestive tract; Z98.84 Bariatric surgery status; Z98.890 Other specified postprocedural states
CPT/HCPCS: 36415; 71045; 80048; 80053; 83690; 83880; 84484; 85025; 85379; 93005; 99285; G0378; G0379

== ENCOUNTER → 2021-01-14 | Outpatient (CLI) | payer OTHER ==
[~2021-01-14] MED LIST changes: +ACET500T68 PO; +ASPI325T11 PO; +HYDR-2145 PO; +IBUP-1027 PO; +METO-239 PO; +REGADENOSON 0.4 MG/5 ML DISP.SYRIN. IV ONE; +ROPI2TAB10 PO
--- NOTE | 2021-01-14 11:44 | CARD ---
MR#: [id number] Date of Study: 01/14/2021 Ordering Physician: SHAWN LUCERO, Referring Physician: SHAWN LUCERO, Tech: Iza Ferreiraabdirizakstephen, [facility] APPROVED REPORT EXAM: Two-dimensional and M-mode echocardiogram with Doppler and color Doppler. Other Information Quality : AverageHR: 59bpm INDICATION Chest Pain RISK FACTORS Hypertension 2D DIMENSIONS RVDd3.7 (2.9-3.5cm)Left Atrium(2D)3.6 (1.6-4.0cm) IVSd1.1 (0.7-1.1cm)Aortic Root(2D)3.4 (2.0-3.7cm) LVDd4.8 (3.9-5.9cm)LVOT Diameter2.2 (1.8-2.4cm) PWd1.1 (0.7-1.1cm)LVDs2.9 (2.5-4.0cm) FS (%) 40.3 %SV76.1 ml LVEF(%)70.9 (>50%) Aortic Valve AoV Peak Giuliano.129.8cm/sAoV VTI33.8cm AO Peak GR.6.7mmHgLVOT Peak Giuliano.68.6cm/s LVOT VTI 20.07cmAO Mean GR.4mmHg YURY (VMAX)1.78qd4EIB (VTI)2.27cm2 Mitral Valve MV E Sugokvcm59.9cm/sMV DECEL [id number] MV A Ciaiyjgz99.9cm/sMV E Mean Gr.1mmHg MV HOB45qlO/A Ratio1.3 MVA (PHT)3.52cm2 TDI E/Lateral E'10.1E/Medial E'14.6 Pulmonary Valve PV Peak Mrmbmofs26.0cm/sPV Peak Grad.2mmHg Tricuspid Valve TR P. Vjefdzqu737ay/sRAP QTVIFQQV7jgEp TR Peak Gr.97hhPjZLMY24usHz Pulmonary Vein S1 Cjnknexj53.3cm/sD2 Imwgvadl95.6cm/s PVa qcwofoxx909szcj LEFT VENTRICLE The left ventricle is normal size. There is borderline to mild concentric left ventricular hypertroph y. The left ventricular systolic function is normal and the ejection fraction is within normal range. The Ejection Fraction is >55%. There is normal LV segmental wall motion. Transmitral Doppler flow pa ttern is Grade II-pseudonormal filling dynamics. RIGHT VENTRICLE The right ventricle is normal size. There is normal right ventricular wall thickness. The right ventr icular systolic function is normal. ATRIA The left atrium size is normal. The right atrium size is normal. The interatrial septum is intact wit h no evidence for an atrial septal defect or patent foramen ovale as noted on 2-D or Doppler imaging. AORTIC VALVE The aortic valve is normal in structure and function. Doppler and Color Flow revealed no significant aortic regurgitation. There is no significant aortic valvular stenosis. Calculated aortic valve area is 2.24 cm2 with maximum pressure gradient of 8 mmHg and mean pressure gradient of 4 mmHg. MITRAL VALVE The mitral valve is normal in structure and function. There is no evidence of mitral valve prolapse. There is no mitral valve stenosis. Doppler and Color-flow revealed trace mitral regurgitation. TRICUSPID VALVE The tricuspid valve is normal in structure and function. Doppler and Color Flow revealed trace tricus pid regurgitation with an estimated PAP of 25 mmHg. There is no tricuspid valve stenosis. PULMONIC VALVE The pulmonic valve is not well visualized. Doppler and Color Flow revealed no pulmonic valvular regur gitation. There is no pulmonic valvular stenosis. GREAT VESSELS The aortic root is normal in size. The IVC is normal in size and collapses >50% with inspiration. PERICARDIAL EFFUSION There is no evidence of significant pericardial effusion. Critical Notification Critical Value: No <Conclusion> The left ventricular systolic function is normal and the ejection fraction is within normal range. Th e Ejection Fraction is >55%. There is normal LV segmental wall motion. Signed by : Shawn Lucero, Electronically Approved : 01/14/2021 11:43:29
--- NOTE | 2021-01-15 08:30 | RAD ---
MR#: [id number] Date of Study: 01/14/2021 Ordering Physician: SHAWN LUCERO, Referring Physician: TARI JENNINGS Tech: JEET Bernal ARRT (R) (N) APPROVED REPORT Test Type: Pharmacological Stress Nurse/Tech: Evelyn Díaz RN Test Indications: chest pain Cardiac History: asthma, Cath, HTN, DM Medications: See Electronic Medical Record Medical History: See Electronic Medical Record Resting ECG: SR Resting Heart Rate: 54 bpm Resting Blood Pressure: 138/70mmHg Pretest Chest Pain: None Nurse/Tech Notes lungs CTA, S1S2 Consent: The procedure was explained to the patient in lay terms. Informed consent was witnessed. Orlin eout was entered into [employer] History and Stress Test performed by RT Margarito (R) (N) Pharm. Details Pharmacologic stress testing was performed using 0.4mg per 5ml of regadenoson given intravenously ove r 7-10 seconds. Stress Symptoms No chest pain or symptoms. POST EXERCISE Reason for Termination: Infusion complete Max HR: 75 bpm Max Blood Pressure: 149/61mmHg Blood Pressure response to exercise: Normal blood pressure response during stress. Heart Rate response to exercise: normal response Chest Pain: No. Arrhythmia: No. ST Change: No. INTERPRETATION Stress EKG Conclusion: No evidence of stress induced EKG changes. Imaging Protocol IMAGE PROTOCOL: Rest Tc-99m/stress Tc-99m 1 day Rest: Stress: Viability: Radiopharm.Tc99m MwmiazmjcCi08m Sestamibi Dose10.4mCi 31.4mCi Img Date 01/14/2021 01/14/2021 Inj-Img Cncn28bqt. 60min. Rest Admin Site:IV - Right AntecubitalAdministrator:JEET Bernal ARRT (R)(N) Stress Admin Site: IV - Right AntecubitalAdministrator: RT Jomar Pimentel)(N) STRESS DATA End Diast. Vol.90.0mlAv. Heart Rate74.0bpm End Syst. Vol.23.0mlCO Index BSA5.0L/min Myocardial Fhzf153.0gEject. Uewqxbos18.0% Stress Rates Pk. Fill Rate3.33EDV/secLVtime Pk. Fill 221.51msec Pk. Empty Rate3.56ESV/secLVtime Pk. Jnguv569.42msec 1/3 Pk. Fill1.56EDV/sec Stress Scores Regional WT2.00Summed WT4.00 Regional WM0.00Summed WM0.00 The rest and stress images show normal perfusion, normal contraction and thickening. LV Perf. Quant 17 Seg. SSS0.00 17 Seg. SRS0.00 17 Seg. SDS0.00 Stress Defect Extent (% LAD)0.00Rest Defect Extent (% LAD)4.40Rev. Defect Extent (% LAD)0.00 Stress Defect Extent (% LCX) 0.00Rest Defect Extent (% LCX)0.00Rev. Defect Extent (% LCX)0.00 Stress Defect Extent (% RCA)0.00Rest Defect Extent (% RCA)0.00Rev. Defect Extent (% RCA)0.00 Stress Defect Extent (% ANIKA)0.00Rest Defect Extent (% ANIKA)2.20Rev. Defect Extent (% ANIKA)0.00 Other Information Quality:Average Risk Assessment: Low Risk Conclusion 1. No evidence of EKG changes with stress testing. 2. Normal perfusion at stress/rest. 3. Low risk study. 4. EF > 60%. Signed by : Shawn Lucero, Electronically Approved : 01/15/2021 08:29:47
== END ==
LOC: NM 09:11
PROVIDERS: ATTEND Internal Medicine Cardiovascular Disease
DX: R07.9 Chest pain, unspecified (principal)
CPT/HCPCS: 78452; 93017; 93306; A9500; J2785

== ENCOUNTER 2021-02-17 18:37 | Emergency (ER) | payer OTHER ==
[~2021-02-17] VITALS: Ht 165.1 cm; Wt 100.9 kg
[~2021-02-17 18:37] MED LIST changes: -REGADENOSON 0.4 MG/5 ML DISP.SYRIN. IV ONE
[2021-02-17 19:00] VITALS: BP 173/86
[2021-02-17] MEDS ORDERED: IBUPROFEN 200 MG TABLET. PO ONE (19:15)
--- NOTE | 2021-02-17 19:18 | PHYS DOC ---
Past Medical History Past Medical History: Asthma, Hypertension Past Surgical History: Cholecystectomy, Gastric Bypass, Tonsillectomy Additional Past Surgical Histo: breast reduction, lower GI bleed, Smoking Status: Never Smoker Alcohol Use: None Drug Use: None General Adult EDM: Chief Complaint: HEAD INJURY/TRAUMA HPI: HPI: Patient is a 65-year-old female who presents to the emergency department following a fall. She reports that her pain got caught on the oxygen tank at work and she tripped and fell. She denies losing consciousness. She is reporting pain to the left forehead and top of her head. She rates it 6 out of 10. She is also reporting left anterior knee pain and has an abrasion to that knee. She is also reporting right wrist pain that has a small area of ecchymosis as well as left palm pain where she has ecchymosis. She took nothing for pain prior to arrival. She denies being on blood thinners, nausea, vomiting, vision changes, neck or back pain. She reports following the fall she was dizzy but that has resolved. Review of Systems: Review of Systems: HENT: See HPI Eyes: See HPI GI: See HPI Musculoskeletal: See HPI Integument: See HPI Neurologic: See HPI Heart Score: C/O Chest Pain: N/A Risk Factors: Risk Factors: DM, Current or recent (<one month) smoker, HTN, HLP, family history of CAD, obesity. Risk Scores: Score 0 - 3: 2.5% MACE over next 6 weeks - Discharge Home Score 4 - 6: 20.3% MACE over next 6 weeks - Admit for Clinical Observation Score 7 - 10: 72.7% MACE over next 6 weeks - Early Invasive Strategies Allergies: Allergies: Allergies Coded Allergies Type Severity Reaction Last Updated Verified GABBY Inhibitors Allergy Intermediate tongue Swelling 03/04/14 Yes Cephalexin Monohydrate Allergy Intermediate Hives 03/04/14 Yes Physical Exam: PE: Constitutional: Well developed, well nourished, no acute distress, non-toxic appearance. [] HENT: Normocephalic, no raccoon sign, 1 cm hematoma noted to right posterior scalp and left forehead, bilateral external ears normal, oropharynx moist, no oral exudates, nose normal. [] Eyes: PERRL, EOMI, conjunctiva normal, no discharge. [] Neck: Normal range of motion, no bony spinal tenderness, supple, no stridor. [] Cardiovascular: Normal peripheral perfusion Lungs & Thorax: Normal work of breathing, no tachypnea Abdomen: Soft Skin: Warm, dry, no erythema, no rash, 1 cm abrasion noted to the anterior aspect of patient's left knee, 0.5 cm area of ecchymosis noted to patient's r ight wrist and palmar aspect of left hand Back: No tenderness, normal range of motion Extremities: No tenderness, no cyanosis, no clubbing, ROM intact, no edema. Left knee: Range of motion intact, no obvious deformity, neuro intact, patient does not report any pain with palpation of knee, no swelling noted. Right wrist: Range of motion intact, neuro intact, no obvious deformity,no swelling noted, no reported pain with palpation, no crepitus. Left hand: Range of motion intact, neuro intact, no obvious deformity, no pain reported with palpation Neurologic: Alert and oriented X 3, normal motor function, normal sensory function, no focal deficits noted. [] Psychologic: Affect normal, judgement normal, mood normal. [] EKG: EKG: [] Radiology/Procedures: Radiology/Procedures: []PROCEDURE: CT HEAD AND CERVICAL SPINE WO STUDY: CT head and cervical spine without contrast INDICATION: Fall. Head injury. COMPARISON: CT head 06/14/2019 TECHNIQUE: Axial CT imaging through the head and cervical spine without the use of intravenous contrast. Sagittal and coronal reformats were obtained. One or more of the following individualized dose reduction techniques were utilized for this examination: 1. Automated exposure control 2. Adjustment of the mA and/or kV according to patient size 3. Use of iterative reconstruction technique. FINDINGS: CT head: No acute intracranial hemorrhage. Hall-white matter differentiation is maintained. No mass effect, midline shift or hydrocephalus. Left frontal and right parietal scalp contusions unremarkable globes and retrobulbar soft tissues. No depressed calvarial fracture. Normally aerated mastoid air cells, middle ears and visualized paranasal sinuses. CT cervical spine: No acute fracture or traumatic malalignment. Bulky ventral osteophyte formation from C4 to C5 through C6-C7. Discogenic arthrosis greatest at C6-C7 as is uncovertebral joint hypertrophy. Degenerative remodeling at the atlantodental interface. Narrowing of the central canal is mild to borderline moderate at a few levels. Osseous neural foraminal encroachment greatest on the left at C6-C7 but not severe. Mild carotid calcific atherosclerosis. No prevertebral effusion or dorsal paraspinous hematoma. The partially imaged thyroid is unremarkable. IMPRESSION: CT head: 1. Left frontal and right parietal scalp hematomas. No depressed calvarial fracture or acute intracranial hemorrhage. CT cervical spine: 1. No acute fracture or traumatic malalignment. 2. Degenerative findings outlined in the body of the report. Electronically signed by: ELVA DURBIN MD (02/17/2021 7:58 PM) [facility] DICTATED and SIGNED BY: ELVA DURBIN MD DATE: 02/17/[id number] 0 Course & Med Decision Making: Course & Med Decision Making Pertinent Labs and Imaging studies reviewed. (See chart for details) Patient presents to the emergency department for head injury after falling today. Work-up in the ER consisted of CT imaging of head and neck. She was also reporting left knee, right wrist and left palm pain and these were imaged also. Patient treated in the ER for her pain. CT head and neck unremarkable. Remaining x-rays were read by this [employer] and supervising physician and no acute findings were found. Patient advised to apply ice, elevate and take Tylenol and/or ibuprofen for pain. Patient advised to follow-up with her primary care provider. I discussed with patient all findings and diagnostic testing as well as the need to follow-up with PCP for further evaluation and treatment or return to the ER if any new or worsening symptoms. Strict return precautions were also discussed at length. Patient voiced understanding and agreement with the plan. Patient is hemodynamically stable at the time of disposition. Marcos Disclaimer: Marcos Disclaimer: This electronic medical record was generated, in whole or in part, using a voice recognition dictation system. Departure Departure Impression: Primary Impression: Head injury Qualified Codes: S09.90XA - Unspecified injury of head, initial encounter Disposition: HOME / SELF CARE / HOMELESS Condition: GOOD Referrals: SABIHA KO MD (PCP) Patient Instructions: Fall Prevention and Home Safety, Head Injury, Adult Additional Instructions: You were seen in the emergency department following a fall. CT scan was performed of your head and neck that showed no acute findings. You do have hematomas to your scalp therefore, you should apply ice to these areas. X-rays were performed of your right wrist, left hand and left knee that showed no acute findings. For swelling you can use ice and elevation at home. You can take Tylenol and/or ibuprofen. Follow-up with your primary care provider tomorrow regarding your ER visit. Return to the emergency department if you develop worsening of your pain, confusion, difficulty ambulating, dizziness or syncope, loss of bowel or bladder, intractable nausea or vomiting, numbness or tingling in your groin or down your legs. EMERGENCY DEPARTMENT GENERAL DISCHARGE INSTRUCTIONS Thank you for coming to [facility] Emergency Department (ED) today and trusting us with you care. We trust that you had a positive experience in our Emergency Department. If you wish to speak to the department management, you may call the Director at [phone]. YOUR FOLLOW UP INSTRUCTIONS ARE FOLLOWS: 1. Do you have a private Doctor? If you do not have a private doctor, please ask for a resource list of physicians or clinics that may be able to assist you with follow up care. 2. The Emergency Physicain has interpreted your x-rays. The X-Ray specialist will also review them. If there is a change in the findings, you will be notified in 48 hours when at all possible. 3. A lab test or culture has been done, your results will be reviewed and you will be notified if you need a change in treatment. ADDITIONAL INSTRUCTIONS AND INFORMATION: 1. Your care today has been supervised by a physician who is specially trained in emergency care. Many problems require more than one evaluation for a complete diagnosis and treatment. We recommend that you schedule your follow up appointment as enrike mmended to ensure complete treatment of you illness or injury. If you are unable to obtain follow up care and continue to have a problem, or if your condition worsens, we recommend that you return to the ED. 2. We are not able to safely determine your condition over the phone nor are we able to give sound medical advice over the phone. For these safety reasons, if you call for medical advice we will ask you to come to the ED for further evaluation. 3. If you have any questions regarding these discharge instructions please call the ED at [phone]. SAFETY INFORMATION: In the interest of safety, wellness, and injury prevention; we encourage you to wear your sealbelt, if you smoke; quite smoking, and we encourage family to use a protective helmet for bicycling and other sporting events that present an increased risk for head injury. IF YOUR SYMPTOMS WORSEN OR NEW SYMPTOMS DEVELOP, OR YOU HAVE CONCERNS ABOUT YOUR CONDITION; OR IF YOUR CONDITION WORSENS WHILE YOU ARE WAITING FOR YOUR FOLLOW UP APPOINTMENT; EITHER CONTACT YOUR PRIMARY CARE DOCTOR, THE PHYSICIAN WHOSE NAME AND NUMBER YOU WERE GIVEN, OR RETURN TO THE ED IMMEDIATELY. TRAVIS BILLINGS APRN Feb 17, 2021 19:17
--- NOTE | 2021-02-17 20:00 | RAD ---
STUDY: CT head and cervical spine without contrast INDICATION: Fall. Head injury. COMPARISON: CT head 06/14/2019 TECHNIQUE: Axial CT imaging through the head and cervical spine without the use of intravenous contra st. Sagittal and coronal reformats were obtained. One or more of the following individualized dose reduction techniques were utilized for this examinat ion: 1. Automated exposure control 2. Adjustment of the mA and/or kV according to patient size 3. Use of iterative reconstruction technique. FINDINGS: CT head: No acute intracranial hemorrhage. Hall-white matter differentiation is maintained. No mass effect, mi dline shift or hydrocephalus. Left frontal and right parietal scalp contusions unremarkable globes and retrobulbar soft tissues. No depressed calvarial fracture. Normally aerated mastoid air cells, middle ears and visualized paranas al sinuses. CT cervical spine: No acute fracture or traumatic malalignment. Bulky ventral osteophyte formation from C4 to C5 through C6-C7. Discogenic arthrosis greatest at C6-C 7 as is uncovertebral joint hypertrophy. Degenerative remodeling at the atlantodental interface. Narr owing of the central canal is mild to borderline moderate at a few levels. Osseous neural foraminal e ncroachment greatest on the left at C6-C7 but not severe. Mild carotid calcific atherosclerosis. No prevertebral effusion or dorsal paraspinous hematoma. The p artially imaged thyroid is unremarkable. IMPRESSION: CT head: 1. Left frontal and right parietal scalp hematomas. No depressed calvarial fracture or acute intracr anial hemorrhage. CT cervical spine: 1. No acute fracture or traumatic malalignment. 2. Degenerative findings outlined in the body of the report. Electronically signed by: ELVA DURBIN MD (02/17/2021 7:58 PM) [facility]
--- NOTE | 2021-02-17 20:49 | RAD ---
Exam: Right wrist 3 views INDICATION: Fall TECHNIQUE: Frontal, lateral oblique views of the right wrist Comparisons: None FINDINGS: Bone mineralization is normal. No acute or healed fractures. Soft tissues are unremarkable. Joint spa shiv are well-maintained. IMPRESSION: No acute osseous abnormality. Electronically signed by: Nicola Gupta MD (02/17/2021 8:47 PM) [place]
--- NOTE | 2021-02-17 20:50 | RAD ---
Exam: Left knee 3 views INDICATION: Fall TECHNIQUE: Frontal, lateral and oblique views left knee Comparisons: None FINDINGS: Bone mineralization is normal. No acute or healed fractures. Soft tissues are unremarkable. Joint spa shiv are well-maintained. IMPRESSION: No acute osseous abnormality Electronically signed by: Nicola Gupta MD (02/17/2021 8:48 PM) [place]
--- NOTE | 2021-02-17 20:51 | RAD ---
Exam: Left hand 3 views INDICATION: Fall TECHNIQUE: Frontal, lateral and oblique views of the left hand Comparisons: None FINDINGS: Bone mineralization is normal. No acute fracture. Chronic fracture at the ulnar styloid. Soft tissues are unremarkable. Joint spaces are well-maintained. IMPRESSION: No acute osseous abnormality. Electronically signed by: Nicola Gupta MD (02/17/2021 8:48 PM) [place]
== END 2021-02-17 20:32 | disposition home or self-care (01) ==
LOC: ER 18:37
DX: S60.211A Contusion of right wrist, initial encounter (principal); S80.212A Abrasion, left knee, initial encounter; S09.90XA Unspecified injury of head, initial encounter; M79.642 Pain in left hand; J45.909 Unspecified asthma, uncomplicated; I10 Essential (primary) hypertension; Z90.49 Acquired absence of other specified parts of digestive tract; Z98.84 Bariatric surgery status; Z88.1 Allergy status to other antibiotic agents; Z88.8 Allergy status to other drugs, medicaments and biological substances; W01.0XXA Fall on same level from slipping, tripping and stumbling without subsequent striking against object, initial encounter; Y93.89 Activity, other specified; Y92.89 Other specified places as the place of occurrence of the external cause; Y99.8 Other external cause status
CPT/HCPCS: 70450; 72125; 73110; 73130; 73562; 99284-25

== ENCOUNTER → 2021-04-19 | Outpatient (CLI) | payer OTHER | LOC: LAB 19:43 | PROVIDERS: ATTEND Internal Medicine Pulmonary Disease | DX: U07.1 COVID-19 (principal); R09.81 Nasal congestion; R53.81 Other malaise; M79.10 Myalgia, unspecified site | CPT/HCPCS: U0003; U0005 ==

== ENCOUNTER → 2021-08-04 | Outpatient (CLI) | payer OTHER ==
[2021-08-04 17:10] LABS: ALBUMIN 3.9 g/dL (3.4-5.0); ALBUMIN/GLOBULIN RATIO 0.9 (1.0-1.7); CALCIUM 9.9 mg/dL (8.5-10.1); POTASSIUM 3.3 mmol/L (3.5-5.1); TOTAL BILIRUBIN 0.4 mg/dL (0.2-1.0); TOTAL PROTEIN 8.4 g/dL (6.4-8.2)
--- NOTE | 2021-08-04 17:48 | RAD ---
MR#: [id number] Date of Study: 08/04/2021 Ordering Physician: SHAWN ESQUIVEL, Referring Physician: SHAWN ESQUIVEL, Tech: Iza Ventura RDMS, RVT, RTR APPROVED REPORT Patient Location : OUT-PATIENT Indications Stasis Disease Varicose Veins Venous Insufficiency Greater Saphenous Veins (GSV) Significant venous relux noted in the RIGHT GSV at the following levels : Superficial Femoral Junctio n, Proximal Thigh, Mid Thigh, Distal Thigh, Proximal Calf, Mid Calf, Distal Calf Significant venous relux noted in the LEFT GSV at the following levels : Superficial Femoral Junction , Proximal Thigh, Mid Thigh, Distal Thigh, Proximal Calf, Mid Calf, Distal Calf Findings Grayscale images of superficial veins and saphenofemoral junctions bilateral lower extremities were g rossly unremarkable without any evidence of thrombus. Spectral waveform and color duplex analysis sh owed significant venous reflux involving bilateral greater saphenous veins. The lesser saphenous vei ns did not show any significant insufficiency bilaterally. The right greater saphenous vein measured 6.2 mm at the saphenofemoral junction and showed significan t reflux of 2.4 seconds. This vein showed significant reflux all the way from the level of the groin to the ankle. The left greater saphenous vein measured 6.7 mm at the saphenofemoral junction and sh owed significant reflux of 2.2 seconds. This vein could not be visualized in the mid thigh but the d istal segment is well visualized with significant reflux. Critical Notification Critical Value: No <Conclusion> Bilateral lower extremity venous reflux study showed significant insufficiency involving bilateral gr eater saphenous veins. Signed by : Nilay Jordan, Electronically Approved : 08/04/2021 17:48:13
== END ==
LOC: US 13:54
PROVIDERS: ATTEND Internal Medicine Cardiovascular Disease
DX: I87.2 Venous insufficiency (chronic) (peripheral) (principal); I10 Essential (primary) hypertension
CPT/HCPCS: 36415; 80053; 83880; 93970